=== PATIENT | female | born 1950 | race Caucasian/White ===

== ENCOUNTER 2017-01-29 09:16 | Emergency (ER) | payer MEDICARE, BC ==
[2017-01-29 09:31] VITALS: BP 141/93
--- NOTE | 2017-01-29 09:43 | UC ---
Respiratory Complaint HPI - HPI Summary HPI Summary: cough x 7 day . no fever, no chills, no nasal congestion , no pnd cough is dry , has been vomiting, concern about aspiration - History of Current Complaint Chief Complaint: UCGI Stated Complaint: VOMIT ASPIRATION/COUGH Time Seen by Provider: 01/29/17 09:34 Hx Obtained From: Patient Hx Last Menstrual Period: mid 30s Onset/Duration: Gradual Onset, Lasting Days - 7, Still Present Timing: Constant Severity Initially: Severe Severity Currently: Moderate Character: Cough: Nonproductive Aggravating Factors: Exertion, Deep Breaths Alleviating Factors: Nothing Associated Signs And Symptoms: Positive: URI, Nasal Congestion. Negative: Dyspnea, Fever, Chills, Pleuritic Chest Pain, Wheezing, Hemoptysis, Dizziness, Calf Pain, Calf Swelling - Allergies/Home Medications Allergies/Adverse Reactions: Allergies Allergy/AdvReac Type Severity Reaction Status Date / Time No Known Allergies Allergy Verified 01/29/17 09:31 Home Medications: Home Medications Diuretic 0.5 tab PO DAILY 01/29/17 [History Confirmed 01/29/17] PMH/Surg Hx/FS Hx/Imm Hx Previously Healthy: Yes - Surgical History Surgical History: None - Family History Known Family History: Positive: Hypertension - Social History Alcohol Use: Weekly Alcohol Amount: 2 Substance Use Type: None Smoking Status (MU): Former Smoker When Did the Patient Quit Smoking/Using Tobacco: 2012 Review of Systems Constitutional: Negative Skin: Negative Eyes: Negative ENT: Negative Respiratory: Cough Cardiovascular: Negative Gastrointestinal: Negative All Other Systems Reviewed And Are Negative: Yes Physical Exam Triage Information Reviewed: Yes Appearance: Well-Appearing, No Pain Distress, Well-Nourished Vital Signs: Initial Vital Signs Temp 98.9 F 01/29/17 09:21 Pulse 84 01/29/17 09:21 Resp 18 01/29/17 09:21 BP 141/93 01/29/17 09:21 Pulse Ox 97 01/29/17 09:21 Vital Signs Reviewed: Yes Eye Exam: Normal Eyes: Positive: Conjunctiva Clear ENT: Positive: Normal ENT inspection, Hearing grossly normal, Pharynx normal Neck: Positive: Supple, Nontender, No Lymphadenopathy Respiratory: Positive: Chest non-tender, Lungs clear, Normal breath sounds Cardiovascular: Positive: RRR, No Murmur, Pulses Normal Skin Exam: Normal UC Diagnostic Evaluation - Laboratory O2 Sat by Pulse Oximetry: 97 Respiratory Course/Dx - Differential Dx/Diagnosis Provider Diagnoses: BRONCHITIS Discharge - Discharge Plan Condition: Stable Disposition: HOME Prescriptions: Azithromycin TAB* [Zithromax TAB (Z-YARIEL) 250 mg #6 tabs] 2 tab PO .TODAY, THEN 1 DAILY #1 yariel Patient Education Materials: Acute Bronchitis (ED) Referrals: Maria Del Rosario Hough MD [Primary Care Provider] - If Needed
== END 2017-01-29 09:48 | disposition home or self-care (01) ==
LOC: UCCORT 09:16
DX: J40 Bronchitis, not specified as acute or chronic (principal); Z87.891 Personal history of nicotine dependence
CPT/HCPCS: 99212; G0463

== ENCOUNTER 2017-04-10 13:39 | Emergency (ER) | payer MEDICARE, BC ==
[2017-04-10 13:48] VITALS: BP 129/88
--- NOTE | 2017-04-10 14:34 | UC ---
Throat Pain/Nasal Dinh HPI - HPI Summary HPI Summary: SORE THROAT FOR SEVERAL DAYS, WITH NO IMPROVEMENT. NO FEVER. NO CONGESTION. NO RASH. NO ABDOMINAL PAIN. NO NECK STIFFNESS. - History of Current Complaint Chief Complaint: UCRespiratory Stated Complaint: SORE THROAT Time Seen by Provider: 04/10/17 13:42 Hx Obtained From: Patient, Family/Director Translation Hx Last Menstrual Period: n/a Onset/Duration: Gradual Onset, Lasting Days, Still Present Severity: Moderate Pain Intensity: 6 Pain Scale Used: 0-10 Numeric Cough: None Associated Signs & Symptoms: Positive: Dysphagia, Hoarseness - Epiglottits Risk Factors Epiglottis Risk Factors: Negative - Allergies/Home Medications Allergies/Adverse Reactions: Allergies Allergy/AdvReac Type Severity Reaction Status Date / Time No Known Allergies Allergy Verified 04/10/17 13:48 PMH/Surg Hx/FS Hx/Imm Hx Previously Healthy: Yes - Surgical History Surgical History: None - Family History Known Family History: Positive: Hypertension - Social History Occupation: Employed Full-time Lives: With Family Alcohol Use: Weekly Alcohol Amount: 2 Substance Use Type: None Smoking Status (MU): Former Smoker When Did the Patient Quit Smoking/Using Tobacco: 2012 Review of Systems Constitutional: Negative Skin: Negative Eyes: Negative ENT: Sore Throat Respiratory: Negative Cardiovascular: Negative Gastrointestinal: Negative Genitourinary: Negative Motor: Negative Neurovascular: Negative Musculoskeletal: Negative Neurological: Negative Psychological: Negative All Other Systems Reviewed And Are Negative: Yes Physical Exam Triage Information Reviewed: Yes Appearance: Well-Appearing, No Pain Distress, Well-Nourished Vital Signs: Initial Vital Signs Temp 98.8 F 04/10/17 13:43 Pulse 90 04/10/17 13:43 Resp 17 04/10/17 13:43 BP 129/88 04/10/17 13:43 Pulse Ox 99 04/10/17 13:43 Vital Signs Reviewed: Yes Eye Exam: Normal ENT: Positive: Hearing grossly normal, Pharyngeal erythema, TMs normal Dental Exam: Normal Neck exam: Normal Neck: Positive: Supple, Nontender Respiratory Exam: Normal Respiratory: Positive: Chest non-tender, Lungs clear, Normal breath sounds, No respiratory distress Cardiovascular Exam: Normal Cardiovascular: Positive: RRR, No Murmur, Pulses Normal Abdominal Exam: Normal Musculoskeletal Exam: Normal Musculoskeletal: Positive: Strength Intact, ROM Intact Neurological Exam: Normal Psychological Exam: Normal Skin Exam: Normal Throat Pain/Nasal Course/Dx - Differential Dx/Diagnosis Differential Diagnosis/HQI/PQRI: Pharyngitis, Sinusitis, URI Provider Diagnoses: PHARYNGITIS Discharge - Discharge Plan Condition: Stable Disposition: HOME Patient Education Materials: Pharyngitis (ED) Referrals: Maria Del Rosario Hough MD [Primary Care Provider] -
== END 2017-04-10 14:16 | disposition home or self-care (01) ==
LOC: UCCORT 13:39
DX: J02.9 Acute pharyngitis, unspecified (principal); Z87.891 Personal history of nicotine dependence
CPT/HCPCS: 87651; 99211; G0463

== ENCOUNTER 2017-06-01 12:10 | Emergency (ER) | payer MEDICARE, BC ==
[2017-06-01 14:33] VITALS: BP 138/81
--- NOTE | 2017-06-01 15:32 | UC ---
Skin Complaint HPI - HPI Summary HPI Summary: Pt presents with c/o insect bite to abdomen that she removed this morning. Pt unsure how long the tick was attached. Pt denies rash, fever, chills or body aches. - History of Current Complaint Chief Complaint: UCSkin Time Seen by Provider: 06/01/17 14:28 Stated Complaint: TICK Hx Obtained From: Patient Hx Last Menstrual Period: n/a ?: Yes Onset/Duration: Sudden Onset Skin Exposure Onset/Duration: Hours Ago Onset Severity: Mild Current Severity: None Pain Intensity: 0 Pain Scale Used: 0-10 Numeric Location: Discrete - abdomen Aggravating Factor(s): Nothing Alleviating Factor(s): Nothing Related History: Insect Bite/Sting - Allergy/Home Medications Allergies/Adverse Reactions: Allergies Allergy/AdvReac Type Severity Reaction Status Date / Time No Known Allergies Allergy Verified 06/01/17 14:29 Home Medications: Home Medications Chlorothiazide TAB* [Diuril TAB*] 500 mg PO DAILY 06/01/17 [History Confirmed ] Review of Systems Constitutional: Negative Skin: Negative Eyes: Negative ENT: Negative Respiratory: Negative Cardiovascular: Negative Gastrointestinal: Negative Genitourinary: Negative Motor: Negative Neurovascular: Negative Musculoskeletal: Negative Neurological: Negative Psychological: Negative Is Patient Immunocompromised?: No All Other Systems Reviewed And Are Negative: Yes PMH/Surg Hx/FS Hx/Imm Hx Previously Healthy: Yes - Surgical History Surgical History: None - Family History Known Family History: Positive: Hypertension - Social History Occupation: Retired Lives: With Family Alcohol Use: Occasionally Alcohol Amount: 2 Substance Use Type: None Smoking Status (MU): Former Smoker Have You Smoked in the Last Year: No When Did the Patient Quit Smoking/Using Tobacco: 2012 Physical Exam Triage Information Reviewed: Yes Appearance: Well-Appearing Vital Signs: Initial Vital Signs Temp 98.7 F 06/01/17 14:29 Pulse 89 06/01/17 14:29 Resp 16 06/01/17 14:29 BP 138/81 06/01/17 14:29 Pulse Ox 99 06/01/17 14:29 Eye Exam: Normal ENT Exam: Normal Neck exam: Normal Respiratory: Positive: No respiratory distress Abdominal Exam: Normal Abdomen Description: Positive: Nontender Musculoskeletal Exam: Normal Neurological Exam: Normal Psychological Exam: Normal Skin Exam: Normal Course/Dx - Course Course Of Treatment: Pt requested doxycycline. I discussed the risk for getting lyme and her diminished risk for getting lyme. - Differential Diagnoses - Skin Complaint Differential Diagnoses: Tick Born Illness, Other - Insect bite - Diagnoses Provider Diagnoses: Insect bite. Pt requested doxycycline Discharge - Discharge Plan Condition: Stable Disposition: HOME Prescriptions: DOXYcycline CAP(*) [DOXYcycline 100MG CAP(*)] 200 mg PO ONCE #2 cap Patient Education Materials: Tick Bite (ED) Referrals: Maria Del Rosario Hough MD [Primary Care Provider] - If Needed Additional Instructions: Please follow up with your PCP as needed.
== END 2017-06-01 14:54 | disposition home or self-care (01) ==
LOC: UCCORT 12:10
DX: S30.861A Insect bite (nonvenomous) of abdominal wall, initial encounter (principal); F17.210 Nicotine dependence, cigarettes, uncomplicated; W57.XXXA Bitten or stung by nonvenomous insect and other nonvenomous arthropods, initial encounter
CPT/HCPCS: 99212; G0463

== ENCOUNTER 2017-11-20 08:00 | Emergency (ER) | payer MEDICARE, BC ==
[2017-11-20 08:21] VITALS: BP 144/86
--- NOTE | 2017-11-20 08:39 | UC ---
Lower Extremity/Ankle HPI - HPI Summary HPI Summary: She was walking down steps to the pool and slipped and hit left lateral ankle. There is pain in the ankle and foot. NO knee or hip pain. YEsterday she had her right arm twisted by her horse and now she has sweling and bruising of the left biceps. - History of Current Complaint Chief Complaint: UCLowerExtremity Stated Complaint: FELL/LEFT LEG COMP Time Seen by Provider: 11/20/17 08:31 Hx Obtained From: Patient Hx Last Menstrual Period: n/a Onset/Duration: Sudden Onset, Lasting Days, Still Present Severity Initially: Moderate Severity Currently: Moderate Pain Intensity: 7 Aggravating Factor(s): Standing, Ambulation Alleviating Factor(s): Rest, Elevation Able to Bear Weight: Yes - Allergies/Home Medications Allergies/Adverse Reactions: Allergies Allergy/AdvReac Type Severity Reaction Status Date / Time No Known Allergies Allergy Verified 06/01/17 14:29 PMH/Surg Hx/FS Hx/Imm Hx Previously Healthy: No - Surgical History Surgical History: None - Family History Known Family History: Positive: Hypertension - Social History Alcohol Use: Occasionally Alcohol Amount: 2 Substance Use Type: None Smoking Status (MU): Never Smoked Tobacco Length of Time of Smoking/Using Tobacco: 35 Have You Smoked in the Last Year: No When Did the Patient Quit Smoking/Using Tobacco: 2012 Review of Systems Skin: Bruising Musculoskeletal: Arthralgia All Other Systems Reviewed And Are Negative: Yes Physical Exam Triage Information Reviewed: Yes Appearance: Well-Appearing, No Pain Distress, Well-Nourished Vital Signs: Initial Vital Signs Temp 98.5 F 11/20/17 08:14 Pulse 73 11/20/17 08:14 Resp 18 11/20/17 08:14 BP 144/86 11/20/17 08:14 Pulse Ox 100 11/20/17 08:14 Vital Signs Reviewed: Yes Eyes: Positive: Conjunctiva Clear. Negative: Conjunctiva Inflamed ENT: Positive: Normal ENT inspection Neck: Positive: Supple, Nontender, No Lymphadenopathy Respiratory: Negative: Respiratory distress, Accessory muscle use Cardiovascular: Positive: Brisk Capillary Refill Abdomen Description: Negative: Distended Musculoskeletal Exam: Other - right biceps bruising without deformity. There is intact biceps hook sign and no pain with long flexor tender. There is some pain with forearm pronation. Psychological: Positive: Age Appropriate Behavior Skin Exam: Other - bruising of the right biceps. Skin: Negative: rashes Diagnostics - Radiology No standard instances Xray Interpretation: Positive (See Comments) - distal fibula fracture. left. Radiology Interpretation Completed By: ED Physician Lower Extremity Course/Dx - Course Course Of Treatment: right biceps tear without tendon rupture. - Differential Dx/Diagnosis Provider Diagnoses: fibula fracture distal on the left. Discharge - Sign-Out/Discharge Documenting (check all that apply): Discharge - Discharge Plan Condition: Good Disposition: HOME Prescriptions: oxyCODONE/Acetamin 5/325 MG* [Percocet 5/325 TAB*] 2 tab PO Q6H PRN #20 tab MDD 4 PRN Reason: Pain Patient Education Materials: Leg Fracture (ED) Referrals: Maria Del Rosario Hough MD [Primary Care Provider] - Phi Mccray MD [Medical Doctor] - - Billing Disposition and Condition Condition: GOOD Disposition: HOME
--- NOTE | 2017-11-20 09:06 | RAD ---
INDICATION: Fall. Ankle pain. Foot pain. COMPARISON: Left ankle same date TECHNIQUE: AP, lateral, and oblique views were obtained. FINDINGS: There is no fracture of the foot. Joint spaces and soft tissues are normal. There is an oblique fracture of the fibula described in a separate report. IMPRESSION: FIBULAR FRACTURE
--- NOTE | 2017-11-20 09:07 | RAD ---
INDICATION: Fall. Left ankle pain COMPARISON: None TECHNIQUE: AP, lateral, and oblique views were obtained. FINDINGS: There is not significantly displaced, oblique fracture of the distal fibular diaphysis. No other fractures are evident. The ankle mortise is intact. There is lateral soft tissue swelling. IMPRESSION: FIBULAR FRACTURE.
== END 2017-11-20 09:37 | disposition home or self-care (01) ==
LOC: UCCORT 08:00
DX: S82.832A Other fracture of upper and lower end of left fibula, initial encounter for closed fracture (principal); W10.8XXA Fall (on) (from) other stairs and steps, initial encounter; Y93.11 Activity, swimming; Y92.9 Unspecified place or not applicable; S46.211A Strain of muscle, fascia and tendon of other parts of biceps, right arm, initial encounter; X50.0XXA Overexertion from strenuous movement or load, initial encounter; Y93.F9 Activity, other caregiving; Y92.79 Other farm location as the place of occurrence of the external cause; Z87.891 Personal history of nicotine dependence
CPT/HCPCS: 99213; G0463

== ENCOUNTER 2019-09-05 11:33 | Emergency (ER) | payer MEDICARE, BC ==
[2019-09-05 12:47] VITALS: BP 139/89
--- NOTE | 2019-09-05 12:59 | UC ---
Respiratory Complaint HPI - HPI Summary HPI Summary: Pt presents with c/o cough, nasal and chest congestion, wheezing that began this morning. Pt denies fever, chills, body aches. - History of Current Complaint Chief Complaint: UCRespiratory Stated Complaint: CHEST CONGESTION Time Seen by Provider: 09/05/19 12:43 Hx Obtained From: Patient Hx Last Menstrual Period: n/a ?: No Onset/Duration: Sudden Onset, Lasting Days, Still Present Timing: Intermittent Episodes Severity Initially: Mild Severity Currently: Mild Pain Intensity: 0 Character: Cough: Nonproductive Aggravating Factors: Deep Breaths, Recumbent Position Alleviating Factors: Nothing Associated Signs And Symptoms: Positive: Wheezing, URI, Nasal Congestion - Risk Factors Pulmonary Embolism Risk Factors: Negative Cardiac Risk Factors: Hypertension Pseudomonas Risk Factors: Negative - Allergies/Home Medications Allergies/Adverse Reactions: Allergies Allergy/AdvReac Type Severity Reaction Status Date / Time seasonal Allergy Congestion Uncoded 09/05/19 12:48 Home Medications: Home Medications Chlorthalidone TAB* [Hygroton TAB*] 25 mg PO DAILY 09/05/19 [History Confirmed 09/05/19] Meloxicam [Mobic] 15 mg PO DAILY 09/05/19 [History Confirmed 09/05/19] traMADol TAB* [Ultram*] 50 mg PO DAILY PRN 09/05/19 [History Confirmed 09/05/19] PMH/Surg Hx/FS Hx/Imm Hx Previously Healthy: Yes Cardiovascular History: Cardiac Disease, Hypertension - Surgical History Surgical History: None - Family History Known Family History: Positive: Hypertension - Social History Occupation: Employed Full-time Lives: With Family Alcohol Use: Occasionally Alcohol Amount: 2 Substance Use Type: None Smoking Status (MU): Former Smoker Length of Time of Smoking/Using Tobacco: 35 Have You Smoked in the Last Year: No When Did the Patient Quit Smoking/Using Tobacco: 2012 - Immunization History Vaccination Up to Date: Yes Review of Systems All Other Systems Reviewed And Are Negative: Yes Constitutional: Positive: Negative Skin: Positive: Negative Eyes: Positive: Negative ENT: Positive: Sinus Congestion Respiratory: Positive: Cough Cardiovascular: Positive: Negative Gastrointestinal: Positive: Negative Genitourinary: Positive: Negative Motor: Positive: Negative Neurovascular: Positive: Negative Musculoskeletal: Positive: Negative Neurological: Positive: Negative Psychological: Positive: Negative Is Patient Immunocompromised?: No Physical Exam Triage Information Reviewed: Yes Appearance: Well-Appearing Vital Signs: Initial Vital Signs Temp 97.5 F 09/05/19 12:41 Pulse 69 09/05/19 12:41 Resp 20 09/05/19 12:41 BP 139/89 09/05/19 12:41 Pulse Ox 97 09/05/19 12:41 Vital Signs Reviewed: Yes Eye Exam: Normal ENT: Positive: Nasal congestion Dental Exam: Normal Neck exam: Normal Respiratory Exam: Normal Cardiovascular Exam: Normal Musculoskeletal Exam: Normal Neurological Exam: Normal Psychological Exam: Normal Skin Exam: Normal Respiratory Course/Dx - Differential Dx/Diagnosis Differential Diagnosis/HQI/PQRI: Bronchitis, Influenza, Lower Resp Infection Provider Diagnosis: Viral syndrome, Cough Discharge ED - Sign-Out/Discharge Documenting (check all that apply): Patient Departure All imaging exams completed and their final reports reviewed: No Studies - Discharge Plan Condition: Stable Disposition: HOME Prescriptions: Albuterol HFA INHALER* [Ventolin HFA Inhaler*] 1 puff INH Q6H PRN #1 mdi PRN Reason: Sob/Wheezing guaiFENesin ER TAB [Mucinex*] 600 mg PO Q12H #14 tab.er predniSONE 10 mg TAB [Deltasone 10 MG TAB*] 30 mg PO DAILY #12 tab Patient Education Materials: Viral Syndrome (ED), Acute Cough (ED) Referrals: Maria Del Rosario Hough MD [Primary Care Provider] - If Needed Additional Instructions: Please follow up with your PCP as needed. If your symptoms do not improve or they worsen, please seek care at the closest emergency room as soon as needed. - Billing Disposition and Condition Condition: STABLE Disposition: Home
== END 2019-09-05 13:15 | disposition home or self-care (01) ==
LOC: UCCORT 11:33
DX: B34.9 Viral infection, unspecified (principal); I10 Essential (primary) hypertension; R09.81 Nasal congestion; R09.89 Other specified symptoms and signs involving the circulatory and respiratory systems; Z87.891 Personal history of nicotine dependence; Z91.09 Other allergy status, other than to drugs and biological substances
CPT/HCPCS: 99212; G0463

== ENCOUNTER 2022-01-09 09:55 | Observation (INO) ==
[~2022-01-09 09:55] MED LIST: Buffered Lidocaine 1% SYRIN 1 ml INTRADERM ONE; Lactated Ringers 1000 ml BAG 1,000 ML IV SCH; Naloxone 0.4 mg VIAL 0.4 mg/ml 1 ml VIAL IV PRN; Ondansetron 4 mg VIAL 2 MG/ML 2 ml VIAL IV PRN
[2022-01-09] MEDS ORDERED: ceFAZolin 2 GM in NS PREMIX 2 GM/100 ML BAG IVPB ONE (10:22)
[2022-01-09] MEDS ORDERED: Dexamethasone IV 4 MG/ML VIAL 1 ml VIAL ONE (11:28)
[2022-01-09] MEDS ORDERED: Midazolam 2 mg/2 ml VIAL 1 mg/ml 2 ml VIAL (2 mg) ONE ×2 (11:28→12:30)
[2022-01-09] MEDS ORDERED: Bupivacaine 0.5% SDV PF 30ML VIAL ONE (11:38)
[2022-01-09] MEDS ORDERED: Lidocaine 1% MPF 5 ML VIAL ONE (11:38)
[2022-01-09] MEDS ORDERED: ROPIVACAINE 5 MG/ML 30 ML BTL (0.5%) ONE (11:46)
[2022-01-09] MEDS ORDERED: fentaNYL 100 mcg/2 ml 50 MCG/ML VIAL ONE (13:11)
[2022-01-09] MEDS ORDERED: Propofol 10 MG/ML 20 ML BTL ONE ×2 (13:45→14:39)
[2022-01-09] MEDS ORDERED: Ondansetron 4 mg VIAL 2 MG/ML 2 ml VIAL IV PRN (14:02)
[2022-01-09] MEDS ORDERED: Morphine 2 MG/ML SYRINGE IV PRN (14:02)
[2022-01-09] MEDS ORDERED: Lactulose 30 ml UDC PO PRN (14:02)
[2022-01-09] MEDS ORDERED: Ondansetron ODT 4 mg TAB 4 MG TAB PO PRN (14:02)
[2022-01-09] MEDS ORDERED: Magnesium Hydroxide LIQ 30 ML UDC PO PRN (14:02)
[2022-01-09] MEDS ORDERED: Fluticasone NASAL SPRAY 50MCG 16 gm SPRAY BTL INTRANASAL PRN (14:11)
[2022-01-09] MEDS ORDERED: Acetaminophen IV 1 GM/100ML 100 ML IV ONE (14:35)
[2022-01-09] MEDS ORDERED: HYDROmorphone 1 MG/1 ML SYRINGE ONE (15:25)
[2022-01-09] MEDS: HYDROmorphone 1 MG/1 ML SYRINGE IV PRN ×5 (15:28→15:58)
[2022-01-09] MEDS: Lactated Ringers 1000 ml BAG 1,000 ML IV SCH (16:56)
[2022-01-09] MEDS: Magnesium Hydroxide LIQ 30 ML UDC PO SCH (21:44)
[2022-01-09] MEDS: ceFAZolin 1 GM ADVAN 1 GM in NS 0.9% 50 ML 50 ML IVPB SCH (21:44)
[2022-01-10] MEDS: Lactated Ringers 1000 ml BAG 1,000 ML IV SCH (03:52)
[2022-01-10] MEDS: ceFAZolin 1 GM ADVAN 1 GM in NS 0.9% 50 ML 50 ML IVPB SCH ×2 (04:38→12:13)
[2022-01-10 06:49] LABS: Hematocrit 36 % (35-47); Hemoglobin 11.8 g/dL (12.0-16.0); Mean Platelet Volume 7.8 fL (7.4-10.4); Platelet Count 249 10^3/uL (150-450)
[2022-01-10 07:07] LABS: Calcium 8.4 mg/dL (8.6-10.3); Potassium 4.6 mmol/L (3.5-5.0); eGFR CKD-EPI 88.4 (>60)
[2022-01-10] MEDS: Magnesium Hydroxide LIQ 30 ML UDC PO SCH (07:43)
[2022-01-10] MEDS ORDERED: Vitamin THERAPEUTIC TAB PO SCH (09:00)
[2022-01-10 11:47] VITALS: BP 120/74
== END 2022-01-10 14:17 | disposition home or self-care (01) ==
LOC: SSU 09:55 → OR 09:55
PROVIDERS: ADMIT Orthopaedic Surgery Adult Reconstructive Orthopaedic Surgery; ATTEND Orthopaedic Surgery Adult Reconstructive Orthopaedic Surgery